=== PATIENT | female | born 1995 | race Caucasian/White ===

== ENCOUNTER 2016-07-22 17:58 | Emergency (ER) | payer OTHER ==
[~2016-07-22] VITALS: Ht 152.4 cm; Wt 85.0 kg
[~2016-07-22 17:58] MED LIST: ALBU8.5H3; CEPH-443 PO; PREN1TAB67 PO
[2016-07-22 18:00] VITALS: Ht 152.4 cm; Wt 85.0 kg
[2016-07-22] MEDS ORDERED: ACETAMINOPHEN 500 MG TAB PO STA (19:22)
[2016-07-22 19:59] LABS: ADD UMIC YES; URINE BILIRUBIN (Dip) NEGATIVE (NEGATIVE); URINE BLOOD (Dip) TRACE (NEGATIVE); URINE COLOR LT. YELLOW (YELLOW); URINE GLUCOSE (Dip) NEGATIVE (NEGATIVE); URINE KETONES (Dip) NEGATIVE (NEGATIVE); URINE LEUKOCYTE ESTERASE (Dip) TRACE (NEGATIVE); URINE NITRITE (Dip) NEGATIVE (NEGATIVE); URINE TOTAL PROTEIN (Dip) NEGATIVE (NEGATIVE); URINE UROBILINOGEN (Dip) 0.2 E.U./dL (0.1-1.0)
[2016-07-22 20:02] LABS: ADD SCAN DIFF NO
[2016-07-22 20:04] LABS: BASOPHIL # 0.1 10^3/ul (0.0-0.1); BASOPHILS % 0.8 % (0.0-2.0); EOSINOPHILS # 0.3 10^3/ul (0.0-0.5); EOSINOPHILS % 3.3 % (0.0-7.0); HEMOGLOBIN 12.8 g/dl (12.0-16.0); LYMPHOCYTES # 2.5 10^3/ul (0.8-2.9); LYMPHOCYTES % 27.4 % (18.0-55.0); MEAN CORPUSCULAR HEMOGLOBIN 30.2 pg (29.0-33.0); MEAN CORPUSCULAR HGB CONC 33.7 g/dl (32.0-37.0); MEAN CORPUSCULAR VOLUME 89.6 fl (72.0-104.0); MEAN PLATELET VOLUME 11.4 fl (7.4-10.4); MONOCYTE # 0.8 10^3/ul (0.3-0.9); MONOCYTES % 8.6 % (0.0-13.0); NEUTROPHIL # 5.5 10^3/ul (1.6-7.5); NEUTROPHILS % 59.6 % (30.0-74.0); PLATELET COUNT 348 10^3/UL (140-415); RED BLOOD COUNT 4.24 10^6/ul (4.20-5.40); RED CELL DISTRIBUTION WIDTH 13.4 % (11.5-14.5); WHITE BLOOD COUNT 9.3 10^3/ul (4.8-10.8)
--- NOTE | 2016-07-22 20:08 | RADRPT ---
PROCEDURE: US OB. US OB Transabd 1St Tri CLINICAL INDICATION: fever TECHNIQUE: Transabdominal and transvaginal views of the pelvis are available for review. COMPARISON: No prior studies are available for comparison. FINDINGS: The uterus demonstrates a gestational sac, with mean sac diameter measuring 5.3 cm. There is a feta l pole identified. A yolk sac is noted. There is a possible minimal subchorionic bleed, 6 x 2 mm. [place]-rump length:4.0 heart rate:176 beats per minute Ultrasound estimated gestational age:11 weeks and 2 days Estimated delivery date 02/08/2017. Estimated delivery date by last menstrual period 01/23/2017. There is a left ovarian cyst, 17 mm. The right ovary is not well seen.. There is no free fluid. IMPRESSION: 1. Single live intrauterine with an estimated gestational age of 11 weeks and 2 days. P ossible minimal subchorionic bleed.. RPTAT: DD .Toney Sanderson MD, MD Date Time Electronically viewed and signed by .Toney Sanderson MD, on 07/22/2016 20:08 .T/
[2016-07-22 20:10] LABS: SQUAMOUS EPITHELIAL CELL,UR OCCASIONAL
[2016-07-22] MEDS ORDERED: CEPH-443 PO (21:07)
[2016-07-22] MEDS ORDERED: ACET325T33 PO (21:07)
--- NOTE | 2016-07-22 21:16 | ERD ---
ER Documentation Chief Complaint Date/Time DATE: 07/22/16 TIME: 21:15 Chief Complaint HEADACHE X 2 WEEKS , 10 WEEKS PREG HPI This is a 20-year-old female female stating that she 10 weeks complaining of on and off headache for the past 2 weeks. Patient states that the headaches start washes during a computer at work. Patient rates the pain 8 out of 10 that comes and goes. Patient has not or any medications. She denies any nausea, vomiting, lethargy, vaginal bleeding, abdominal pain. She denies any symptoms any dysuria. ROS All systems reviewed and are negative except as per history of present illness. Medications Home Meds Active Scripts Acetaminophen* (Tylenol*) 325 Mg Tablet, 2 TAB PO Q4 Y for PAIN AND OR ELEVATED TEMP, #30 TAB Prov:ERVIN CASTRO PA-C 07/22/16 Cephalexin* (Keflex*) 500 Mg Capsule, 500 MG PO BID for 7 Days, CAP Prov:ERVIN CASTRO PA-C 07/22/16 Cephalexin* (Keflex*) 500 Mg Capsule, 500 MG PO BID for 7 Days, CAP Prov:SCOTTIE COTTRELL NP 11/28/14 Reported Medications Vits W-Ca,Fe,Fa(<1MG) ( Formula) 1 Each Tablet, 1 EACH PO DAILY , #1 05/14/13 Albuterol Sulfate* (Proair HFA*) 8.5 Gm Hfa.aer.ad 01/23/12 Allergies Allergies: Coded Allergies: No Known Allergy (Verified , 07/22/16) PMhx/Soc Medical and Surgical Hx: pt denies Surgical Hx History of Surgery: No Anesthesia Reaction: No Hx Neurological Disorder: No Hx Respiratory Disorders: Yes (ASTHMA) Hx Cardiac Disorders: No Hx Psychiatric Problems: No Hx Miscellaneous Medical Probl: Yes (gallstones) Hx Alcohol Use: No Hx Substance Use: No Hx Tobacco Use: No Smoking Status: Never smoker Physical Exam Vitals Vital Signs Date Time Temp Pulse Resp B/P Pulse Ox O2 Delivery O2 Flow Rate FiO2 07/22/16 18:00 100.2 98 18 126/64 98 Physical Exam GENERAL: well-developed/well-nourished, in no apparent distress, non-toxic appearing HENT: NC/AT, bilateral tympanic membrane is normal with good cone of light, nares patent, oropharynx clear without exudates EYES: Conjunctiva normal, PERRLA, EOMI, no nystagmus noted NECK: Supple, no lymphadenopathy PULM: CTA bilaterally, no rales, rhonchi, or wheezing heard CV: Normal S1S2, RRR, good capillary refill GI: Soft, non-distended, normal bowel sounds, non-tender BACK: No midline tenderness, no masses, No CVAT EXT: No clubbing, cyanosis, or edema NEURO: Alert and orientated to person, place, and time. CN II-IIX intact. Gait and coordination were normal. 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 YELLOW Urine Clarity CLEAR Urine pH 5.5 Urine Specific Topmost 1.010 Urine Ketones NEGATIVE Urine Nitrite NEGATIVE Urine Bilirubin NEGATIVE Urine Urobilinogen 0.2 E.U./dL Urine Leukocyte Esterase TRACE Urine Microscopic RBC 2-5/HPF Urine Microscopic WBC 0-2/HPF Urine Squamous Epithelial Cells OCCASIONAL Urine Hemoglobin TRACE Urine Glucose NEGATIVE% Urine Total Protein NEGATIVE White Blood Count 9.310^3/ul Red Blood Count 4.2410^6/ul Hemoglobin 12.8g/dl Hematocrit 38.0% Mean Corpuscular Volume 89.6fl Mean Corpuscular Hemoglobin 30.2pg Mean Corpuscular Hemoglobin Concent 33.7g/dl Red Cell Distribution Width 13.4% Platelet Count 31264^3/UL Mean Platelet Volume 11.4fl Neutrophils % 59.6% Lymphocytes % 27.4% Monocytes % 8.6% Eosinophils % 3.3% Basophils % 0.8% Nucleated Red Blood Cells % 0.0/100WBC Neutrophils # 5.510^3/ul Lymphocytes # 2.510^3/ul Monocytes # 0.810^3/ul Eosinophils # 0.310^3/ul Basophils # 0.110^3/ul Nucleated Red Blood Cells # 0.010^3/ul Beta HCG, Quantitative 46784.0mIU/ml Current Medications Medications (Trade) Dose Ordered Sig/Lily Route PRN Reason Start Time Stop Time Status Last Admin Dose Admin Acetaminophen (Tylenol Tab) 1,000 mg ONCE STAT PO 07/22/16 19:22 07/22/16 19:24 DC 07/22/16 19:42 Procedures/MDM 20-year-old female who is 10 weeks presenting to the emergency department complaining of on and off headaches for the past 2 weeks while she is staring at a computer. My differentials include but not limited to tension, migraine, cluster headache, overuse medication headache, subarachnoid hemorrhage , meningitis, stroke. Pain relief 1000mg Tylenol was given in the ED with some improvement. Neurology exam was normal and I don't recommend a CT scan at this time. Lab work was done in the ED. CT not showing evidence of leukocytes or anemia. Beta hCG was within normal limits. An ultrasound of OB was done and read out as stated: Single live intrauterine with an estimated gestational age of 11 weeks and 2 days. Possible minimal subchorionic bleed. Analysis done in the ED and it showed trace leukocyte esterase therefore patient will be treated for a urinary tract infection. I discussed the patient to follow-up with her primary care physician for further management. I discussed with her to follow-up with an hog scraper for eye exam. hemodynamically stable and neurovascularly intact. Prescriptions Tylenol were given. Discussed to follow up with a primary care physician in the next couple days. Return to the ER if condition worsens or not improving as expected. Patient agreed and understood this plan. Departure Diagnosis: Primary Impression: Headache in Condition: Stable Patient Instructions: What Are Migraine and Tension Headaches?, Tension Headaches, Self-Care for Headaches Referrals: [facility] Hours: Thu - Fri 9:00 AM - 5:00 PM Additional Instructions: FOLLOW UP WITH YOUR PRIMARY CARE PHYSICIAN TOMORROW.Return to this facility if you are not improving as expected. SPECIALIST: YOU HAVE A MEDICAL CONDITION WHICH REQUIRES YOU TO SEE A SPECIALIST WITHIN THE NEXT 1-2 DAYS. PLEASE FOLLOW UP WITH YOUR PRIMARY PHYSICIAN FOR REFFERAL.IF YOU DO NOT HAVE A PRIMARY CARE PHYSICIAN AND/OR YOU CAN NOT AFFORD TO SEE A PHYSICIAN THE FOLLOWING RESOURCES HAVE BEEN SUPPLIED TO YOU. IT IS YOUR RESPONSIBILITY TO BE SEEN BY THE SPECIALIST Return to this facility if you are not improving as expected. Take all medicines as directed. ERVIN CASTRO PA-C Jul 22, 2016 21:16
[2016-07-22 21:23] VITALS: BP 118/72; PULSE 76; RESP 18; TEMP 97.8
== END 2016-07-22 21:24 | disposition home or self-care (01) ==
LOC: E/R 17:58 → FTE 21:24
DX: O99.89 Other specified diseases and conditions complicating pregnancy, childbirth and the puerperium (principal); R51 Headache; J45.909 Unspecified asthma, uncomplicated; R50.9 Fever, unspecified; Z3A.11 11 weeks gestation of pregnancy
CPT/HCPCS: 36415; 76801; 81001; 81003; 84702; 85025; 87086; Z7502; Z7610

== ENCOUNTER 2018-03-22 08:52 | Emergency (ER) | END 2018-03-22 10:40 | disposition home or self-care (01) ==

== ENCOUNTER 2018-08-10 09:13 | Emergency (ER) | payer OTHER ==
[~2018-08-10] VITALS: Ht 157.5 cm; Wt 92.8 kg
[~2018-08-10 09:13] MED LIST changes: +ACET325T33 PO; -ALBU8.5H3; +ALBU8.5H8; +NAPR-985 PO
[2018-08-10 09:18] VITALS: BP 131/61; PULSE 93; RESP 18; Ht 157.5 cm; Wt 92.8 kg
[2018-08-10] MEDS ORDERED: ALBUTEROL 0.083% (NEB) 2.5 MG/3 ML AMP HHN STA (09:24)
[2018-08-10] MEDS ORDERED: IPRATROPIUM (NEB) 0.5 MG/2.5 ML AMP HHN ONE (09:30)
[2018-08-10] MEDS ORDERED: DEXAMETHASONE 10 MG/ML 1 ML INJ IM ONE (09:30)
[2018-08-10] MEDS ORDERED: ALBU2.5V3 NEB (10:04)
[2018-08-10] MEDS ORDERED: ALBU8.5H8 INH (10:04)
[2018-08-10] MEDS ORDERED: PRED20TA PO (10:04)
--- NOTE | 2018-08-10 10:21 | ERD ---
ER Documentation Chief Complaint Chief Complaint chest congestion x 1 day h/o asthma , inhaler not helping HPI 22-year-old female presenting with cough and congestion with history of asthma. Patient states that her inhalers not working and she is feeling short of breath. She denies any hemoptysis or pleuritic chest pain. Denies leg swelling. Patient denies fevers. Denies other medical problems. NKDA. Surgical history denies. Social history denies ROS All systems reviewed and are negative except as per history of present illness. Medications Home Meds Active Scripts Albuterol Sulfate* (Albuterol Sulfate* Neb) 0.083%-3 Ml Neb, 2.5 MG NEB Q4 PRN for SHORTNESS OF BREATH, #30 EA Prov:WESTLEY BARCENAS PA-C 08/10/18 Prednisone* (Prednisone*) 20 Mg Tab, 40 MG PO DAILY for 4 Days, TAB Prov:WESTLEY BARCENAS PA-C 08/10/18 Albuterol Sulfate* (Proair HFA*) 8.5 Gm Hfa.aer.ad, 2 PUFF INH Q4, #1 INHALER Prov:WESTLEY BARCENAS PA-C 08/10/18 Cephalexin* (Keflex*) 500 Mg Capsule, 500 MG PO QID for 10 Days, CAP Prov:JUNIOR CURRY PA-C 03/22/18 Naproxen* (Naprosyn*) 500 Mg Tablet, 500 MG PO BID PRN for PAIN AND/OR INFLAMMATION, #30 TAB Prov:JUNIOR CURRY PA-C 03/22/18 Acetaminophen* (Tylenol*) 325 Mg Tablet, 2 TAB PO Q4 PRN for PAIN AND OR ELEVATED TEMP, #30 TAB Prov:ERVIN CASTRO PA-C 07/22/16 Cephalexin* (Keflex*) 500 Mg Capsule, 500 MG PO BID for 7 Days, CAP Prov:ERVIN CASTRO PA-C 07/22/16 Cephalexin* (Keflex*) 500 Mg Capsule, 500 MG PO BID for 7 Days, CAP Prov:SCOTTIE COTTRELL NP 11/28/14 Reported Medications Vits W-Ca,Fe,Fa(<1MG) ( Formula) 1 Each Tablet, 1 EACH PO DAILY, #1 05/14/13 Albuterol Sulfate* (Proair HFA*) 8.5 Gm Hfa.aer.ad 01/23/12 Allergies Allergies: Coded Allergies: No Known Allergy (Verified , 07/22/16) PMhx/Soc History of Surgery: No Anesthesia Reaction: No Hx Neurological Disorder: No Hx Respiratory Disorders: Yes (ASTHMA) Hx Cardiac Disorders: No Hx Psychiatric Problems: No Hx Miscellaneous Medical Probl: Yes (gallstones) Hx Alcohol Use: No Hx Substance Use: No Hx Tobacco Use: No Smoking Status: Never smoker FmHx Family History: No diabetes, No coronary disease, No other Physical Exam Vitals Vital Signs Date Temp Pulse Resp B/P (MAP) Pulse Ox O2 O2 Flow FiO2 Time Delivery Rate 08/10/18 89 18 96 21 09:41 08/10/18 98.4 93 18 131/61 98 09:18 (84) Physical Exam GENERAL: The patient is well-appearing, well-nourished, in no acute distress HEENT: Atraumatic. Conjunctivae are pink. Pupils equal, round, and reactive to light. There is no scleral icterus. Tympanic membranes clear bilaterally. Oropharynx clear. CHEST: Clear to auscultation bilaterally. There are no rales, wheezes or rhonchi. HEART: Regular rate and rhythm. No murmurs, clicks, rubs or gallops. Results 24 hrs Current Medications Medications Dose Sig/Lily Start Time Status Last (Trade) Ordered Route PRN Stop Time Admin Dose Reason Admin Albuterol 5 mg ONCE STAT 08/10/18 DC 08/10/18 (Proventil HHN 09:24 09:40 0.083% (Neb)) 08/10/18 09:26 Ipratropium 0.5 mg ONCE ONCE 08/10/18 DC 08/10/18 [place] HHN 09:30 09:40 (Atrovent 08/10/18 09:31 0.02% (Neb)) 10 mg ONCE ONCE 08/10/18 DC 08/10/18 Dexamethasone IM 09:30 09:33 (Decadron) 08/10/18 09:31 Procedures/MDM DIAGNOSTIC IMAGING REPORT Patient: GURDEEP DIANA : 1995 Age: 22 Sex: F MR #: [id number] [facility] #: [id number] DOS: 08/10/18 0924 Ordering MD: SAMUEL BARCENAS PA-C Location: [facility] Room/Bed: PROCEDURE: XR Chest. CLINICAL INDICATION: chest pain TECHNIQUE: Single frontal view of the chest was obtained COMPARISON: 04/19/09 FINDINGS: The heart and mediastinum are within normal limits. The lungs are clear. There is no pleural effusion or pneumothorax. RPTAT: AA IMPRESSION: No acute disease. ER Course: albuterol and Atrovent breathing to be given ED. IM injection of Decadron given. Upon reevaluation patient felt dramatically improved and did not have continued shortness of breath MDM: 22-year-old female presenting with shortness of breath. I have low suspicion for pneumonia. I have low suspicion for continued respiratory distress or hypoxia. Patient is discharged with strict ER precautions and told to follow-up with primary care within 1 to 2 days for close evaluation. Patient is told if symptoms change or worsen to return immediately to the ER. Patient is discharged with supportive medications. All questions answered at discharge Departure Diagnosis: Primary Impression: Asthma Condition: Stable Patient Instructions: Asthma, Acute (Adult) Referrals: [facility] YOU HAVE RECEIVED A MEDICAL SCREENING EXAM AND THE RESULTS INDICATE THAT YOU DO NOT HAVE A CONDITION THAT REQUIRES URGENT TREATMENT IN THE EMERGENCY DEPARTMENT. FURTHER EVALUATION AND TREATMENT OF YOUR CONDITION CAN WAIT UNTIL YOU ARE SEEN IN YOUR DOCTORS OFFICE WITHIN THE NEXT 1-2 DAYS. IT IS YOUR RESPONSIBILITY TO MAKE AN APPOINTMENT FOR FOLOW-UP CARE. IF YOU HAVE A PRIMARY DOCTOR --you should call your primary doctor and schedule an appointment IF YOU DO NOT HAVE A PRIMARY DOCTOR YOU CAN CALL OUR PHYSICIAN REFERRAL HOTLINE AT IF YOU CAN NOT AFFORD TO SEE A PHYSICIAN YOU CAN CHOSE FROM THE FOLLOWING [facility] [address] [facility] [address] [facility] [facility] [address] [facility]. [facility] [address] [facility]. [facility] [address] [facility]. [facility]. [address] Additional Instructions: Call your primary care doctor TOMORROW for an appointment during the next 1-2 days.See the doctor sooner or return here if your condition worsens before your appointment time. WESTLEY BARCENAS PA-C Aug 10, 2018 10:21
== END 2018-08-10 10:22 | disposition home or self-care (01) ==
LOC: FTE 09:13
DX: J45.901 Unspecified asthma with (acute) exacerbation (principal)
CPT/HCPCS: 71045; 94664; J1100; Z7610; 96372